=== PATIENT | female | born 1935 | race Caucasian/White ===

== ENCOUNTER 2021-09-27 01:19 | Emergency (ER) | payer MEDICARE, BC ==
[~2021-09-27] VITALS: Ht 165.1 cm; Wt 64.4 kg
--- NOTE | 2021-09-27 01:27 | NUR ---
PT BIB [id number] FROM HOME. C/O LEFT SHOULDER, LEFT KNEE PAIN FROM GLF. DENIES KO. NO VISIBLE TRAUMA. AOX3. NO SOB/LABORED BREATHING. DENIES CP. FAMILY AT BEDSIDE.
--- NOTE | 2021-09-27 01:28 | NUR ---
DR. TAPIA AT BEDSIDE FOR MSE
[2021-09-27] MEDS ORDERED: LORA-258 PO (01:34)
[2021-09-27] MEDS ORDERED: LEVO25TA2 PO (01:34)
[2021-09-27] MEDS ORDERED: LOSA25TA27 PO (01:34)
[2021-09-27] MEDS ORDERED: IBUP100T54 PO (01:34)
--- NOTE | 2021-09-27 01:37 | NUR ---
XRAY AT BEDSIDE
[2021-09-27] MEDS ORDERED: LORAZEPAM 0.5 MG TABLET PO ONE (02:00)
[2021-09-27] MEDS ORDERED: HYDROCODONE/APAP 5-325MG TABLET PO ONE ×2 (02:00→02:30)
[2021-09-27] MEDS ORDERED: ACETAMINOPHEN ES 500 MG TABLET PO ONE (02:00)
[2021-09-27] MEDS ORDERED: ONDANSETRON ODT 4 MG TAB.RAPDIS SL ONE (02:00)
[2021-09-27] MEDS ORDERED: ONDANSETRON ODT 4 MG TAB.RAPDIS ONE (02:00)
[2021-09-27] MEDS ORDERED: LORAZEPAM 1 MG TABLET ONE (02:01)
[2021-09-27] MEDS ORDERED: HYDROCODONE/APAP 5-325MG TABLET ONE ×2 (02:01→02:39)
[2021-09-27] MEDS ORDERED: ACETAMINOPHEN ES 500 MG TABLET ONE (02:07)
[2021-09-27] MEDS ORDERED: HYDR-4209 PO (02:25)
[2021-09-27] MEDS ORDERED: ONDA4TAB5 PO (02:37)
--- NOTE | 2021-09-27 02:59 | NUR ---
Patient discharged to home in stable condition. Written and verbal after care instructions given. Patient verbalizes understanding of instructions. Stressed follow up or return to ER for worsening s/s. PT AMBULATED WITH STEADY GAIT. NO CHANGES IN LOC. DENIES PAIN OR DISCOMFORT UPON DC. ACCOMPANIED BY .
[2021-09-27 03:00] VITALS: BP 124/67
== END 2021-09-27 03:01 | disposition home or self-care (01) ==
LOC: ER 01:22
DX: S42.292A Other displaced fracture of upper end of left humerus, initial encounter for closed fracture (principal); S42.212A Unspecified displaced fracture of surgical neck of left humerus, initial encounter for closed fracture; W01.0XXA Fall on same level from slipping, tripping and stumbling without subsequent striking against object, initial encounter; Y92.019 Unspecified place in single-family (private) house as the place of occurrence of the external cause; K21.9 Gastro-esophageal reflux disease without esophagitis; F41.9 Anxiety disorder, unspecified; Z79.899 Other long term (current) drug therapy; Z88.2 Allergy status to sulfonamides; R94.31 Abnormal electrocardiogram [ECG] [EKG]; R03.0 Elevated blood-pressure reading, without diagnosis of hypertension; I44.0 Atrioventricular block, first degree; I45.10 Unspecified right bundle-branch block
CPT/HCPCS: 72170; 73060; 93005; A4663; A9150; Q0162